=== PATIENT | female | born 1950 | race Caucasian/White ===

== ENCOUNTER 2019-08-21 05:51 | Outpatient (CLI) | payer MEDICARE ==
[~2019-08-21] VITALS: Ht 160 cm; Wt 72.7 kg
[2019-08-22] MEDS ORDERED: ATEN25TA PO (09:13)
[2019-08-22] MEDS ORDERED: LISI1TAB10 PO (09:13)
== END 2019-08-22 09:18 | disposition home or self-care (01) ==
LOC: PREOP 05:51
PROVIDERS: ATTEND Specialist
DX: Z01.818 Encounter for other preprocedural examination (principal)

== ENCOUNTER 2019-08-23 08:32 | Day surgery (SDC) | payer MEDICARE ==
[~2019-08-23] VITALS: Ht 160 cm; Wt 72.7 kg
[~2019-08-23 08:32] MED LIST: ATEN25TA PO; LISI1TAB26 PO
[2019-08-23 08:40] VITALS: BP 141/75
[2019-08-23] MEDS: TETRACAINE 0.5% OPHTH SOLN 4 ML BTL (SINGLE DOSE ONLY) OU PRN ×4 (08:56→09:29)
[2019-08-23] MEDS ORDERED: MOXIFLOXACIN OPHTH SOLN 5 MG/ML 0.3 ML SYRINGE OP ONE (09:00)
[2019-08-23] MEDS ORDERED: TIMOLOL MALEATE 0.5% 5 ML (TIMOPTIC) BTL OU PRN (09:00)
[2019-08-23] MEDS ORDERED: LIDOCAINE PF 1% 2 ML AMP IR PRN (09:00)
[2019-08-23] MEDS ORDERED: POVIDONE (BETADINE) OPHTH SOLN 5% 30 ML OP ONE (09:00)
[2019-08-23] MEDS: PHENYLEPHRINE 10% OPHTH (NEO-SYN) 5 ML BTL OU SCH ×3 (09:07→09:29)
[2019-08-23] MEDS: CYCLOPENTOLATE 1% (CYCLOGYL) 2 ML DROPS OP SCH ×3 (09:07→09:29)
--- NOTE | 2019-08-23 09:31 | Ophthalmologist Pre-Op Note ---
Pre-Operative Progress Note H&P Reviewed The H&P was reviewed, patient examined and no changes noted. Date H&P Reviewed: Aug 23, 2019 Time H&P Reviewed: 09:31 Pre-Op Dx Cataract, Left Eye JOSH CORREA MD Aug 23, 2019 09:31 POS
[2019-08-23] MEDS ORDERED: MIDAZOLAM 2 MG/2 ML (VERSED) VIAL ONE (09:33)
--- NOTE | 2019-08-23 09:52 | Ophthalmology Operative Report ---
Cataract removal/placement IOL PREOPERATIVE DIAGNOSIS: Cataract Left Eye POSTOPERATIVE DIAGNOSIS: Cataract Left Eye PROCEDURE: Cataract removal and placement of posterior chamber implant, left eye SURGEON: Kartik Correa ANESTHESIA: Topical with sedation COMPLICATIONS: None ESTIMATED BLOOD LOSS: Minimal DESCRIPTION OF PROCEDURE: After proper informed consent was obtained, the patient, a 69 female, was taken to the Operating Room and the left eye was anesthetized with tetracaine. The left eye was then prepped and draped in the usual manner. A wire lid speculum was placed. A paracentesis was made at the left hand position. Preservative free lidocaine was injected into the anterior chamber followed by viscoelastic. A clear corneal incision was made in the temporal position. A capsulorrhexis was preformed and the central nuclear and cortical material were removed. The posterior capsule was polished and an Devon 21.5 AU00T0 was placed into the capsular bag. The residual viscoelastic was aspirated and balanced saline solution was injected into the anterior chamber. Moxifloxacin was injected into the anterior chamber. The wound was checked and found to be water tight. The patient tolerated the procedure well without complications. KARTIK CORREA MD Aug 23, 2019 09:52 POS
[2019-08-23 09:56] VITALS: BP 131/72
[2019-08-23] MEDS ORDERED: acetaZOLAMIDE ER 500 MG CAP (DIAMOX SEQUELS) PO ONE (10:00)
--- OUTSIDE RECORDS SUMMARY | 2019-09-18 10:16 | XMS REPORT | Continuity of Care Document ---
Author Organization Unknown Address Unknown Phone Unavailable Allergies Active Description Code Type Severity Reaction Onset Reported/Identified Relationship to Patient Clinical Status Yes No Known Drug Allergies [id number] Drug Allergy Unknown N/A 08/22/2019 Medications There is no data. 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) DRUG THERAPY 08/23/2019 JOSH CORREA MD Ot Z83 .3 FAMILY HISTORY OF DIABETES MELLITUS 08/23/2019 JOSH CORREA MD Ot Z90.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 08/23/2019 JOSH CORREA MD Ot Z99.89 DEPENDENCE ON OTHER ENABLING MACHINES AN 08/23/2019 JOSH CORREA MD Ot Z01.818 ENCOUNTER FOR OTHER PREPROCEDURAL EXAMIN 08/30/2019 JOSH CORREA MD Ot E78.00 PURE HYPERCHOLESTEROLEMIA, UNSPECIFIED 08/30/2019 JOSH CORREA MD Ot G47.33 OBSTRUCTIVE SLEEP APNEA (ADULT) (PEDIATR 08/30/2019 JOSH CORREA MD Ot G62 .9 POLYNEUROPATHY, UNSPECIFIED 08/30/2019 JOSH CORREA MD Ot H25.11 AGE-RELATED NUCLEAR CATARACT, RIGHT EYE 08/30/2019 JOSH CORREA MD Ot I10 ESSENTIAL (PRIMARY) HYPERTENSION 08/30/2019 JOSH CORREA MD Ot Z79.899 OTHER [facility] (CURRENT) DRUG THERAPY 09/03/2019 JOSH CORREA MD Ot E78.00 PURE HYPERCHOLESTEROLEMIA, UNSPECIFIED 09/03/2019 JOSH CORREA MD Ot G47.33 OBSTRUCTIVE SLEEP APNEA (ADULT) (PEDIATR 09/03/2019 JOSH CORREA MD Ot G62 .9 POLYNEUROPATHY, UNSPECIFIED 09/03/2019 JOSH CORREA MD Ot H25.11 AGE-RELATED NUCLEAR CATARACT, RIGHT EYE 09/03/2019 JOSH CORREA MD Ot I10 ESSENTIAL (PRIMARY) HYPERTENSION 09/03/2019 JOSH CORREA MD, Ot Z79.899 OTHER [employer] (CURRENT) DRUG THERAPY Procedures There is no data. Results There is no data. Encounters ACCT No. Visit Date/Time Discharge Status Pt. Type Provider Facility Loc./Unit Complaint [id number] 08/30/2019 09:00:00 019 10:32:00 DIS Outpatient JOSH CORREA MD [facility] CATARACT RIGHT EYE [id number] 08/23/2019 08:32:00 019 10:00:00 DIS Outpatient JOSH CORREA MD [facility] CATARACT LEFT EYE [id number] 08/21/2019 05:51:00 019 09:18:00 DIS Outpatient JOSH CORREA MD [facility] PREOP CATARACT LEFT EYE
== END 2019-08-23 10:00 | disposition home or self-care (01) ==
LOC: SDC 08:32
PROVIDERS: ATTEND Specialist
DX: H25.12 Age-related nuclear cataract, left eye (principal); I10 Essential (primary) hypertension; G47.33 Obstructive sleep apnea (adult) (pediatric); E78.00 Pure hypercholesterolemia, unspecified; Z99.89 Dependence on other enabling machines and devices; Z90.89 Acquired absence of other organs; Z79.899 Other long term (current) drug therapy; Z83.3 Family history of diabetes mellitus

== ENCOUNTER 2019-08-30 09:00 | Day surgery (SDC) | payer MEDICARE ==
--- NOTE | 2019-08-23 11:56 | Anesthesia-General Post-Op ---
MAC Patient Condition Mental Status/LOC: Same as Preop Cardiovascular: Satisfactory Nausea/Vomiting: Absent Respiratory: Satisfactory Pain: Controlled Complications: Absent Post Op Complications Complications None Follow Up Care/Instructions Patient Instructions None needed. Anesthesiology Discharge Order Discharge Order Patient is doing well, no complaints, stable vital signs, no apparent adverse anesthesia problems. No complications reported per nursing. MAZIN COL[place]AD[place] CRNA Aug 23, 2019 11:56 POS
[~2019-08-30] VITALS: Ht 160 cm; Wt 72.7 kg
[2019-08-30 09:00] VITALS: BP 157/78
[~2019-08-30 09:00] MED LIST changes: +LISI1TAB10 PO; -LISI1TAB26 PO
[2019-08-30] MEDS ORDERED: TIMOLOL MALEATE 0.5% 5 ML (TIMOPTIC) BTL OU PRN (09:15)
[2019-08-30] MEDS ORDERED: POVIDONE (BETADINE) OPHTH SOLN 5% 30 ML OP ONE (09:15)
[2019-08-30] MEDS ORDERED: MOXIFLOXACIN OPHTH SOLN 5 MG/ML 0.3 ML SYRINGE OP ONE (09:15)
[2019-08-30] MEDS ORDERED: LIDOCAINE PF 1% 2 ML AMP IR PRN (09:15)
[2019-08-30] MEDS: TETRACAINE 0.5% OPHTH SOLN 4 ML BTL (SINGLE DOSE ONLY) OU PRN ×4 (09:24→09:58)
[2019-08-30] MEDS: PHENYLEPHRINE 10% OPHTH (NEO-SYN) 5 ML BTL OU SCH ×3 (09:37→09:59)
[2019-08-30] MEDS: CYCLOPENTOLATE 1% (CYCLOGYL) 2 ML DROPS OP SCH ×3 (09:38→09:59)
--- NOTE | 2019-08-30 10:02 | Ophthalmologist Pre-Op Note ---
Pre-Operative Progress Note H&P Reviewed The H&P was reviewed, patient examined and no changes noted. Date H&P Reviewed: Aug 30, 2019 Time H&P Reviewed: 10:02 Pre-Op Dx Cataract, Right Eye JOSH CORREA MD Aug 30, 2019 10:02 POS
[2019-08-30] MEDS ORDERED: MIDAZOLAM 2 MG/2 ML (VERSED) VIAL ONE (10:05)
--- NOTE | 2019-08-30 10:24 | Ophthalmology Operative Report ---
Cataract removal/placement IOL PREOPERATIVE DIAGNOSIS: Cataract Right Eye POSTOPERATIVE DIAGNOSIS: Cataract Right Eye PROCEDURE: Cataract removal and placement of posterior chamber implant, right eye SURGEON: Kartik Correa ANESTHESIA: Topical with sedation COMPLICATIONS: None ESTIMATED BLOOD LOSS: Minimal DESCRIPTION OF PROCEDURE: After proper informed consent was obtained, the patient, a 69 female, was taken to the Operating Room and the right eye was anesthetized with tetracaine. The right eye was then prepped and draped in the usual manner. A wire lid speculum was placed. A paracentesis was made at the left hand position. Preservative free lidocaine was injected into the anterior chamber followed by viscoelastic. A clear corneal incision was made in the temporal position. A capsulorrhexis was preformed and the central nuclear and cortical material were removed. The posterior capsule was polished and Devon 21.0 AU00T0 IOL was placed into the capsular bag. The residual viscoelastic was aspirated and balanced saline solution was injected into the anterior chamber. Moxifloxacin was injected into the anterior chamber. The wound was checked and found to be water tight. The patient tolerated the procedure well without complications. KARTIK CORREA MD Aug 30, 2019 10:24 POS
[2019-08-30 10:32] VITALS: BP 149/74
[2019-08-30] MEDS ORDERED: acetaZOLAMIDE ER 500 MG CAP (DIAMOX SEQUELS) PO ONE (11:00)
--- NOTE | 2019-08-30 12:42 | Anesthesia-General Post-Op ---
MAC Patient Condition Mental Status/LOC: Same as Preop Cardiovascular: Satisfactory Nausea/Vomiting: Absent Respiratory: Satisfactory Pain: Controlled Complications: Absent Post Op Complications Complications None Follow Up Care/Instructions Patient Instructions None needed. Anesthesiology Discharge Order Discharge Order Patient is doing well, no complaints, stable vital signs, no apparent adverse anesthesia problems. No complications reported per nursing. MAZIN [place] CRNA Aug 30, 2019 12:41 POS
== END 2019-08-30 10:32 | disposition home or self-care (01) ==
LOC: SDC 09:00
PROVIDERS: ATTEND Specialist
DX: H25.11 Age-related nuclear cataract, right eye (principal); E78.00 Pure hypercholesterolemia, unspecified; I10 Essential (primary) hypertension; G47.33 Obstructive sleep apnea (adult) (pediatric); G62.9 Polyneuropathy, unspecified; Z79.899 Other long term (current) drug therapy